=== PATIENT | male | born 1995 | race Caucasian/White ===

== ENCOUNTER 2020-07-17 11:43 | Emergency (ER) | payer BC ==
--- NOTE | 2020-07-17 12:08 | ED ---
General Adult HPI - General Chief complaint: Psychiatric Symptoms Stated complaint: mental health Time Seen by Provider: 07/17/20 12:07 Source: patient, family Mode of arrival: ambulatory Limitations: no limitations - History of Present Illness Initial comments: Patient presents the ED with his stepfather for evaluation. Patient states that he got over "a cold" about a week ago, and he states that he has been having trouble sleeping ever since then. Patient also states that he has been hearing voices, and he states that he has been hearing his stepfather say things that he hasn't been saying. Patient admits to occasional alcohol use, and he states that his last drink was about 2 days ago. Patient denies any illicit drug use. Patient denies medication abuse or overdose. Patient denies suicidal or homicidal ideations. Patient denies visual hallucinations. Patient denies having any pain, fever or chills, trauma or injury, headache, focal numbness/weakness/neuro deficit, seizure, visual changes, speech difficulty, neck pain or stiffness, cough or cold symptoms currently, chest pain, dyspnea, palpitations, dizziness, abdominal pain, nausea/vomiting/diarrhea, dysuria or urinary symptoms, or any other symptoms or complaints. - Related Data Home Medications Medication Instructions Recorded Confirmed Acetaminophen Oral Susp [Tylenol] 15 mg PO Q4H PRN 07/17/20 07/17/20 Dm/Acetaminophen/Doxylamine [Vicks 30 ml PO Q12H PRN 07/17/20 07/17/20 Nyquil Cold-Flu Liquid] Previous Rx's Medication Instructions Recorded LORazepam [Ativan] 1 mg PO HS PRN #1 tab 07/17/20 Allergies Allergy/AdvReac Type Severity Reaction Status Date / Time No Known Allergies Allergy Verified 07/17/20 12:40 Review of Systems ROS Statement: Those systems with pertinent positive or pertinent negative responses have been documented in the HPI. ROS Other: All systems not noted in ROS Statement are negative. Past Medical History Past Medical History: No Reported History History of Any Multi-Drug Resistant Organisms: None Reported Past Surgical History: No Surgical Hx Reported Past Psychological History: No Psychological Hx Reported Smoking Status: Current some day smoker Past Alcohol Use History: Daily Past Drug Use History: None Reported General Exam Limitations: no limitations General appearance: alert, in no apparent distress Head exam: Present: atraumatic, normocephalic Eye exam: Present: normal appearance, PERRL, EOMI ENT exam: Present: mucous membranes moist Neck exam: Present: other (Trachea is in midline). Absent: tenderness, meningismus Respiratory exam: Present: normal lung sounds bilaterally. Absent: respiratory distress, wheezes, rales, rhonchi, stridor Cardiovascular Exam: Present: regular rate, normal rhythm, normal heart sounds, other (Normal radial pulses bilaterally) GI/Abdominal exam: Present: soft. Absent: distended, tenderness, guarding Extremities exam: Absent: tenderness, pedal edema Neurological exam: Present: alert, oriented X3, CN II-XII intact. Absent: motor sensory deficit Psychiatric exam: Present: normal affect, normal mood Skin exam: Present: warm, dry, intact, normal color Course Vital Signs 07/17/20 11:54 Temperature 99.5 F Pulse Rate 107 H Respiratory 18 Rate Blood Pressure 149/102 O2 Sat by Pulse 97 Oximetry - Reevaluation(s) Reevaluation #1: 07/17/20 16:37 Patient has been evaluated by EPS nurse in the ED. She feels that the patient is safe for discharge home and outpatient psychiatric referral. Will treat the patient's insomnia with a dose of Ativan in the ED today and a prescription for another dose to go home with. Will discharge patient home with his father at this time. Patient and father were counseled about insomnia and hallucinations, and they were clearly explained return and follow-up instructions. They both feel comfortable with this plan. Medical Decision Making - Lab Data Lab Results 07/17/20 Range/Units 12:53 Urine Opiates Screen Not Detected (NotDetected) Ur Oxycodone Screen Not Detected (NotDetected) Urine Methadone Screen Not Detected (NotDetected) Ur Propoxyphene Screen Not Detected (NotDetected) Ur Barbiturates Screen Not Detected (NotDetected) U Tricyclic Antidepress Not Detected (NotDetected) Ur Phencyclidine Scrn Not Detected (NotDetected) Ur Amphetamines Screen Not Detected (NotDetected) U Methamphetamines Scrn Not Detected (NotDetected) U Benzodiazepines Scrn Not Detected (NotDetected) Urine Cocaine Screen Not Detected (NotDetected) U Marijuana (THC) Screen Not Detected (NotDetected) Disposition Clinical Impression: Insomnia, Auditory hallucinations Disposition: HOME SELF-CARE Condition: Stable Instructions (If sedation given, give patient instructions): Insomnia (ED), Psychiatric Hallucinations (ED) Additional Instructions: Return to the ER immediately should you develop thoughts of hurting yourself or others, any significant pain, a fever, shortness of breath, feeling dizzy or faint, or new or worsening symptoms. Follow up closely with your primary care provider. Prescriptions: LORazepam [Ativan] 1 mg PO HS PRN #1 tab PRN Reason: Insomnia Is patient prescribed a controlled substance at d/c from ED?: No Referrals: None,Stated [Primary Care Provider] - 1-2 days Kasandra Nieto MD [REFERRING] - 1-2 days Time of Disposition: 16:43
[2020-07-17 13:20] LABS: Amphetamine Screen,Urine Not Detected (NotDetected); Barbiturate Screen,Urine Not Detected (NotDetected); Benzodiazepines Screen,Urine Not Detected (NotDetected); Cocaine Screen,Urine Not Detected (NotDetected); Methadone Screen, Urine Not Detected (NotDetected); Opiate Screen,Urine Not Detected (NotDetected); Oxycodone Screen, Urine Not Detected (NotDetected); Phencyclidine Screen,Urine Not Detected (NotDetected); Tricyclic Antidepressant,Urine Not Detected (NotDetected); Urn Cannabinoid Scrn Not Detected (NotDetected)
[2020-07-17] MEDS ORDERED: LORazepam 1 MG TAB PO STA (16:37)
[2020-07-17 16:53] VITALS: BP 128/79; PULSE 95; RESP 16; TEMP 98
== END 2020-07-17 16:52 | disposition home or self-care (01) ==
LOC: EC 11:43
DX: G47.00 Insomnia, unspecified (principal); R44.0 Auditory hallucinations; F17.200 Nicotine dependence, unspecified, uncomplicated; Z79.899 Other long term (current) drug therapy
CPT/HCPCS: 80306; 82075; 99284

== ENCOUNTER 2020-07-17 22:08 | Observation (INO) | payer BC ==
[2020-07-17] MEDS ORDERED: SODIUM CHLORIDE 0.9% 1,000 ML IV STA (23:01)
[2020-07-17] MEDS ORDERED: SODIUM CHLORIDE 0.9% 1,000 ML IV ONE (23:01)
[2020-07-17] MEDS ORDERED: LORazepam 2 MG/ML INJ IV STA (23:01)
--- NOTE | 2020-07-17 23:02 | ED ---
Altered Mental Status HPI - General Chief Complaint: Psychiatric Symptoms Stated Complaint: Revisit Mental Health Time Seen by Provider: 07/17/20 22:43 Source: patient, family Mode of arrival: ambulatory Limitations: no limitations - Related Data Home Medications Medication Instructions Recorded Confirmed Acetaminophen Oral Susp [Tylenol] 15 mg PO Q4H PRN 07/17/20 07/17/20 Dm/Acetaminophen/Doxylamine [Vicks 30 ml PO Q12H PRN 07/17/20 07/17/20 Nyquil Cold-Flu Liquid] Previous Rx's Medication Instructions Recorded LORazepam [Ativan] 1 mg PO HS PRN #1 tab 07/17/20 Allergies Allergy/AdvReac Type Severity Reaction Status Date / Time No Known Allergies Allergy Verified 07/17/20 12:40 Review of Systems ROS Statement: Those systems with pertinent positive or pertinent negative responses have been documented in the HPI. ROS Other: All systems not noted in ROS Statement are negative. Past Medical History Past Medical History: No Reported History History of Any Multi-Drug Resistant Organisms: None Reported Past Surgical History: No Surgical Hx Reported Past Psychological History: No Psychological Hx Reported Smoking Status: Current some day smoker Past Alcohol Use History: Daily Past Drug Use History: None Reported General Exam Limitations: no limitations Course Vital Signs 07/17/20 22:37 Temperature 99.5 F Pulse Rate 122 H Respiratory 18 Rate Blood Pressure 128/86 O2 Sat by Pulse 99 Oximetry Medical Decision Making - Lab Data Result diagrams: 07/17/20 23:34 07/17/20 23:34 Lab Results 07/17/20 07/17/20 07/17/20 Range/Units 23:34 23:34 23:34 WBC 3.6 L (3.8-10.6) k/uL RBC 4.29 L (4.30-5.90) m/uL Hgb 15.1 (13.0-17.5) gm/dL Hct 42.3 (39.0-53.0) % MCV 98.6 (80.0-100.0) fL MCH 35.3 H (25.0-35.0) pg MCHC 35.8 (31.0-37.0) g/dL RDW 13.4 (11.5-15.5) % Plt Count 138 L (150-450) k/uL MPV 9.5 Neutrophils % 66 % Lymphocytes % 19 % Monocytes % 10 % Eosinophils % 3 % Basophils % 1 % Neutrophils # 2.4 (1.3-7.7) k/uL Lymphocytes # 0.7 L (1.0-4.8) k/uL Monocytes # 0.4 (0-1.0) k/uL Eosinophils # 0.1 (0-0.7) k/uL Basophils # 0.0 (0-0.2) k/uL Sodium 130 L (137-145) mmol/L Potassium 3.7 (3.5-5.1) mmol/L Chloride 93 L (98-107) mmol/L Carbon Dioxide 22 (22-30) mmol/L Anion Gap 15 mmol/L BUN 17 (9-20) mg/dL Creatinine 0.98 (0.66-1.25) mg/dL Est GFR (CKD-EPI)AfAm >90 (>60 ml/min/1.73 sqM) Est GFR (CKD-EPI)NonAf >90 (>60 ml/min/1.73 sqM) Glucose 112 H (74-99) mg/dL Calcium 9.6 (8.4-10.2) mg/dL Total Bilirubin 3.0 H (0.2-1.3) mg/dL AST 221 H (17-59) U/L ALT 239 H (4-49) U/L Alkaline Phosphatase 133 H (38-126) U/L Ammonia 24 (<30) umol/L Creatine Kinase 279 H (55-170) U/L Total Protein 8.0 (6.3-8.2) g/dL Albumin 4.8 (3.5-5.0) g/dL Salicylates <1.0 mg/dL Acetaminophen <10.0 ug/mL Serum Alcohol <10 mg/dL - EKG Data -: EKG Interpreted by Me (EKG shows sinus tachycardia 120 SD 1:30 QRS 86 QTc 440) Disposition Clinical Impression: Insomnia, Auditory hallucinations, Altered mental status, Transaminitis Disposition: ADMITTED IP TO THIS HOSP Condition: Stable Is patient prescribed a controlled substance at d/c from ED?: No Referrals: None,Stated [Primary Care Provider] - 1-2 days
[2020-07-17 23:52] LABS: Basophils % (A) 1 %; Eosinophils # (A) 0.1 k/uL (0-0.7); Eosinophils % (A) 3 %; HCT 42.3 % (39.0-53.0); HGB 15.1 gm/dL (13.0-17.5); Lymphocytes # (A) 0.7 k/uL (1.0-4.8); Lymphocytes % (A) 19 %; MCH 35.3 pg (25.0-35.0); MCHC 35.8 g/dL (31.0-37.0); MCV 98.6 fL (80.0-100.0); Mean Platelet Volume 9.5; Monocytes # (A) 0.4 k/uL (0-1.0); Monocytes % (A) 10 %; Neutrophils # (A) 2.4 k/uL (1.3-7.7); Neutrophils % (A) 66 %; Platelet Count 138 k/uL (150-450); RBC 4.29 m/uL (4.30-5.90); RDW 13.4 % (11.5-15.5); WBC 3.6 k/uL (3.8-10.6)
--- NOTE | 2020-07-17 23:55 | CT ---
EXAMINATION TYPE: CT brain wo con DATE OF EXAM: 07/17/2020 COMPARISON: None HISTORY: ams CT DLP: 1249.4 mGycm Automated exposure control for dose reduction was used. Exam performed without contrast. Ventricles have normal size. There is no mass effect nor midline shift. There is no sign of intracran ial hemorrhage. Calvarium is intact. There is no evidence of cerebral edema. Skull base is intact. IMPRESSION: Normal unenhanced head CT scan.
[2020-07-18 00:08] LABS: ALT 239 U/L (4-49); AST 221 U/L (17-59); Acetaminophen <10.0 ug/mL; African American GFR (CKD) >90 (>60 ml/min/1.73 sqM); Albumin 4.8 g/dL (3.5-5.0); Alcohol <10 mg/dL; Alkaline Phosphatase 133 U/L (38-126); Anion Gap 15 mmol/L; Blood Urea Nitrogen 17 mg/dL (9-20); Calcium 9.6 mg/dL (8.4-10.2); Carbon Dioxide 22 mmol/L (22-30); Chloride 93 mmol/L (98-107); Creatine Kinase 279 U/L (55-170); Glucose 112 mg/dL (74-99); Non-African American GFR(CKD) >90 (>60 ml/min/1.73 sqM); Potassium 3.7 mmol/L (3.5-5.1); Salicylate <1.0 mg/dL; Sodium 130 mmol/L (137-145)
[2020-07-18] MEDS ORDERED: SODIUM CHLORIDE 0.9% 1,000 ML IV STA (00:59)
[2020-07-18] MEDS ORDERED: DIAZEPAM 5 MG/ML 2 ML INJ IVP STA (01:08)
[2020-07-18] MEDS ORDERED: LORazepam 2 MG/ML INJ IV PRN (01:09)
[2020-07-18] MEDS ORDERED: NALOXONE 0.4 MG/ML 1 ML VIAL IV PRN (01:09)
--- NOTE | 2020-07-18 01:45 | CT ---
EXAM: CT Chest With Intravenous Contrast CLINICAL HISTORY: ITS.REASON CT Reason: ams TECHNIQUE: Axial computed tomography images of the chest with intravenous contrast. CTDI is 14.8 mGy and DLP is 1107 mGy-cm. This CT exam was performed using one or more of the following dose reduction techniques: automated exposure control, adjustment of the mA and/or kV according to patient size, and/or use of iterative reconstruction technique. COMPARISON: No relevant prior studies available. FINDINGS: Lungs: Unremarkable. No mass. No consolidation. Pleural space: Unremarkable. No pneumothorax. No significant effusion. Heart: Unremarkable. No cardiomegaly. No significant pericardial effusion. Bones/joints: Unremarkable. No acute fracture. No dislocation. Soft tissues: Unremarkable. Vasculature: Unremarkable. No thoracic aortic aneurysm. Lymph nodes: Unremarkable. No enlarged lymph nodes. IMPRESSION: No acute intrathoracic process. EXAM: CT Abdomen and Pelvis With Intravenous Contrast CLINICAL HISTORY: ITS.REASON CT Reason: ams TECHNIQUE: Axial computed tomography images of the abdomen and pelvis with intravenous contrast. CTDI is 16.9 mGy and DLP is 435.3 mGy-cm. This CT exam was performed using one or more of the following dose reduction techniques: automated exposure control, adjustment of the mA and/or kV according to patient size, and/or use of iterative reconstruction technique. COMPARISON: No relevant prior studies available. FINDINGS: Lung bases: Unremarkable. No mass. No consolidation. ABDOMEN: Liver: Diffusely hypoattenuating liver. No mass. Gallbladder and bile ducts: Unremarkable. No calcified stones. No ductal dilation. Pancreas: Unremarkable. No mass. No ductal dilation. Spleen: Unremarkable. No splenomegaly. Adrenals: Unremarkable. No mass. Kidneys and ureters: Unremarkable. No solid mass. No hydronephrosis. Stomach and bowel: Unremarkable. No obstruction. No mucosal thickening. PELVIS: Appendix: No findings to suggest acute appendicitis. Bladder: Unremarkable. No mass. Reproductive: Unremarkable as visualized. ABDOMEN and PELVIS: Intraperitoneal space: Unremarkable. No free air. No significant fluid collection. Bones/joints: No acute fracture. No dislocation. Soft tissues: Unremarkable. Vasculature: Unremarkable. No abdominal aortic aneurysm. Lymph nodes: Unremarkable. No enlarged lymph nodes. IMPRESSION: 1. No acute intra-abdominal process. 2. Hepatic steatosis.
[2020-07-18] MEDS: DEXTROSE 5%-0.45% NACL 1,000 ML IV SCH ×2 (01:48→14:56)
--- NOTE | 2020-07-18 02:14 | US ---
EXAM: US Abdomen Limited, Gallbladder CLINICAL HISTORY: ITS.REASON US Reason: pain TECHNIQUE: Real-time ultrasound of the right upper quadrant with image documentation. COMPARISON: No relevant prior studies available. FINDINGS: Gallbladder: Unremarkable. No gallstones. Common bile duct: Unremarkable as visualized. No stones. No dilation. Common bile duct measures 4 mm in diameter. Pancreas: Obscured by overlying bowel gas. Liver: Diffusely hyperechoic. Enlarged with right hepatic lobe measuring 22.5 cm in craniocaudal dimension. Right kidney: Measures 11.0 cm in length. No hydronephrosis or shadowing stones. Normal cortical echogenicity. No cortical thinning. IMPRESSION: No cholelithiasis or sonographic evidence of acute cholecystitis. No intrahepatic or extra hepatic biliary ductal dilation.
[2020-07-18] MEDS ORDERED: HALOPERIDOL LACTATE 5 MG/ML 1 ML VIAL IM STA (04:41)
[2020-07-18] MEDS ORDERED: LORazepam 2 MG/ML INJ IV STA (04:41)
[2020-07-18] MEDS ORDERED: diphenhydrAMINE 50 MG/ML 1 ML VIAL IVP STA (04:41)
[2020-07-18] MEDS ORDERED: HALOPERIDOL LACTATE 5 MG/ML 1 ML VIAL IM PRN (06:37)
--- NOTE | 2020-07-18 09:29 | P.CNNES ---
History of Present Illness Consult date: 07/18/20 Requesting physician: Christopher Irving Reason for Consult: altered mental status History of Present Illness: This is a 25-year-old gentleman that presented to the emergency department on 07/17/2020 for insomnia and auditory hallucination for last three days according to the patient. History is limited since unable to get all of history from patient. Some of the history is obtained from Hollie (nurse over at [facility] who knows the patient and his family). She stated the patient has history of LSD overdose 4-5 years ago and walker naked in the street, heavy alcohol use but without any medical problems that she know. She does not know what brought the patient to the facility. Upon seeing the patient he said he was brought in because of COVID-19+ve and elevated liver function test. Upon asking him if he has been coughing recently he said yes. He did state that he heavily drinks alcohol and last drink was 4-5 days ago. He denies of any focal weakness, numbness, headache, visual disturbance. Beside that he could not tell me much of the history. Workup in the hospital consisted of: Initial vital signs is blood pressure of 128/86, heart rate of 122, temperature of 99.5 Fahrenheit oral, respiratory of 18, pulse ox of 99% room air CT of the head is reported as normal unenhanced head CT scan. EKG is reported as sinus tachycardia. Otherwise normal EKG. Initial white blood cells 3.6. That MCV is 98.6 which is normal. The sodium level is 1:30 which is mildly low. The initial serum glucose is 112. AST of 221 and the ALT of 239. Alk phosphatase is 133 which are all abnormal. Ammonia level is 24 which is normal CK level was 279 was mildly elevated. The toxicology screen: Acetaminophen is less than 10 which is normal, alcohol was less than 10, sessile it's is less than 1.0. Aquino virus PCR is detected. Ultrasound the abdomen is reported as no cold urolithiasis or sonographic evidence of acute cholecystitis. No intrahepatic or extrahepatic biliary ductal dilation. CT abdomen and pelvis is reported as no acute intra-abdominal process. Hepatic steatosis. In the ED the patient was given Haldoll 5 mg once because of the patient's acute psychosis and agitation as well as the patient was given a total 3 mg Ativan. Was given 1 mg every 6 hours for anxiety and when necessary. Review of Systems Review of system is limited and pertinent positive and negative as per HPI. Past Medical History Past Medical History: No Reported History History of Any Multi-Drug Resistant Organisms: None Reported Past Surgical History: No Surgical Hx Reported Past Anesthesia/Blood Transfusion Reactions: No Reported Reaction Past Psychological History: No Psychological Hx Reported Smoking Status: Current some day smoker Past Alcohol Use History: Daily Past Drug Use History: None Reported - Past Family History Mother Additional Family Medical History / Comment(s): anxiety and depression Medications and Allergies Home Medications Medication Instructions Recorded Confirmed Type Acetaminophen Oral Susp [Tylenol] 15 mg PO Q4H PRN 07/17/20 07/18/20 History Dm/Acetaminophen/Doxylamine [Vicks 30 ml PO Q12H PRN 07/17/20 07/18/20 History Nyquil Cold-Flu Liquid] LORazepam [Ativan] 1 mg PO HS PRN #1 tab 07/17/20 07/18/20 Rx Allergies Allergy/AdvReac Type Severity Reaction Status Date / Time No Known Allergies Allergy Verified 07/17/20 12:40 Physical Examination - Vital Signs Vital Signs: Vital Signs Temp Pulse Pulse Resp BP BP Pulse Ox 07/18/20 06:02 99.4 F 113 H 21 130/89 97 07/18/20 03:47 99.2 F 120 H 16 141/88 95 07/18/20 02:52 98.9 F 110 H 16 144/90 99 07/17/20 22:37 99.5 F 122 H 18 128/86 99 Intake and Output 07/17/20 07/18/20 07/18/20 22:59 06:59 14:59 Other: Weight 99.79 kg 99.79 kg GENERAL: The patient is lying in bed and is not in acute distress. CHEST: The heart rate is regular rate rhythm. No murmurs to auscultation. No carotid bruit bilaterally. LUNG: Clear to auscultation bilaterally no wheezing noted throughout. Not labored breathing. ABDOMEN/GI: Bowel sounds present in all 4 quadrants. No tenderness to palpation throughout. NEUROLOGICAL: Higher mental function: The patient is awake, alert, oriented to self and time but upon asking his name he said let looked at his wrist band and then stated his name and after repeating it again he said it without looking at wrist band. He stated he was in the hospital but could not tell which. Upon asking him questions he seemed puzzled to questions. He asked me what's today's date later? Able to name objects correctly (pen, watch, cup, fork). Patient is simple following commands. No aphasia and no neglect. Able to repeat sentences without difficulty. Cranial nerves: The pupils are round, equal and reactive to light. Right eye protosis (upon asking him if he had this in past he said it was because he was in [place]). Visual goldstein are full to confrontation throughout. Extraocular movement is intact no nystagmus is noted. Facial sensation is normal to touch throughout. The facial strength is normal throughout. Hearing is normal bilaterally to hand rub. Tongue is midline and moved [id number] without any difficulty. No dysarthria is noted. Shoulder shrug is normal bilaterally. Motor: Gait is normal. The strength is 5 over 5 throughout. Normal tone and bulk. Cerebellum: Normal finger to nose bilaterally. Sensation: Sensation is normal to touch throughout. Reflexes (right/left): 2+ throughout. Plantars are downgoing bilaterally. Results - Laboratory Findings CBC and BMP: 07/17/20 23:34 07/17/20 23:34 Abnormal Lab Findings: Abnormal Labs 07/17/20 07/17/20 07/18/20 23:34 23:34 01:51 WBC 3.6 L RBC 4.29 L MCH 35.3 H Plt Count 138 L Lymphocytes # 0.7 L Sodium 130 L Chloride 93 L Glucose 112 H Total Bilirubin 3.0 H AST 221 H ALT 239 H Alkaline Phosphatase 133 H Creatine Kinase 279 H Coronavirus (PCR) Detected A Assessment and Plan Assessment: This is a 25-year-old gentleman that presented to the emergency department on 07/17/2020 for insomnia and auditory hallucination for the last 3 days per patient. He was found to have elevated AST and ALT as well as his coronavirus patient are was positive. Altered mental status seems like metabolic encephalopathy with elevated AST and ALT as well as component of encephalopathy from the underlying covid 19 (likely COVID-19 pneumonia since also coughing). Possible also component of alcohol withdrawal. Elevated AST and ALT with hepatic steatosis on CT Acute psychosis with insomnia and auditory hallucination COVID 19 Proptosis of right eye. Chronic Heavy Alcohol and per patient last drink was 4-5 days ago History of Drug absuse (LSD overdose about 4-5 years ago per one of the nurses that know the patient and his family) Plan: I ordered TSH level, Vitamin B12 and folate level. I started the patient on thiamine 100 mg daily. I ordered MRI Brain. I ordered CXR. An emergent/urgent EEG is not warranted at this time since does not seem like seizure. Drug screen is pending as well as the hepatitis panel ordered by the ED. Patient is on Ativan 1 mg every 6 hours when necessary. Psychiatry is consulted. [employer] are consulted for transaminitis. Recommend CIWA protocol and to defer management to primary team. We'll defer the rest of the medical measure to the primary team. The plan was discussed with the patient's nurse and primary team. Thank you for the consultation. Omari Masterson MD Neuro-hospitalist Time with Patient: Greater than 30
[2020-07-18 10:06] LABS: Appearance,Urine Clear (Clear); Bilirubin,Urine 1+ (Negative); Blood,Urine Trace (Negative); Color,Urine Yellow; Glucose,Urine (UA) Negative (Negative); Ketones,Urine 1+ (Negative); Leukocyte Esterase,Urine Negative (Negative); Nitrite,Urine Negative (Negative); PH, Urine 6.5 (5.0-8.0); Protein,Urine 1+ (Negative); RBC,Urine 1 /hpf (0-5); Specific Gravity,Urine 1.033 (1.001-1.035); Squamous Epithelial Cell,Urine <1 /hpf (0-4); Urobilinogen,Urine >12.0 mg/dL (<2.0); WBC,Urine <1 /hpf (0-5)
[2020-07-18 10:30] LABS: Amphetamine Screen,Urine Not Detected (NotDetected); Barbiturate Screen,Urine Not Detected (NotDetected); Benzodiazepines Screen,Urine Detected (NotDetected); Cocaine Screen,Urine Not Detected (NotDetected); Methadone Screen, Urine Not Detected (NotDetected); Opiate Screen,Urine Not Detected (NotDetected); Oxycodone Screen, Urine Not Detected (NotDetected); Phencyclidine Screen,Urine Not Detected (NotDetected); Tricyclic Antidepressant,Urine Not Detected (NotDetected); Urn Cannabinoid Scrn Not Detected (NotDetected)
--- NOTE | 2020-07-18 11:21 | XR ---
EXAMINATION TYPE: XR chest 1V portable DATE OF EXAM: 07/18/2020 COMPARISON: None INDICATION: Cough, cold. TECHNIQUE: Single frontal view of the chest is obtained. FINDINGS: The heart size is normal. The pulmonary vasculature is normal. The lungs are clear. IMPRESSION: 1. No acute pulmonary process.
[2020-07-18] MEDS ORDERED: ACETAMINOPHEN TAB 325 MG TAB PO PRN (11:57)
--- NOTE | 2020-07-18 13:56 | P.CN ---
Psychiatric Consult - . Consult date: 07/18/20 Consult:: The patient was also unit for the MRI when I attempted to connect interview. 07/18/20 13:56
--- NOTE | 2020-07-18 13:59 | MR ---
EXAMINATION TYPE: MR brain wo con DATE OF EXAM: 07/18/2020 COMPARISON: CT brain 07/17/2020 HISTORY: Altered mental status CONTRAST: Performed utilizing 0 mL intravenous Gadavist gadolinium contrast. TECHNIQUE: Multiplanar, multiecho imaging on a 3.0 Catherine magnet is performed through the brain. Stud y is performed within 24 hours of arrival to the hospital. The craniovertebral junction is normal. The pituitary is normal. Diffusion-weighted imaging is performed. No abnormal hyperintensity is present to suggest an acute i ntracranial infarct or acute ischemic change. There is a punctate hyperintensity within the deep white matter right frontal lobe. This is not out o f proportion of the patient's age. Ventricles and sulci are appropriate for the patient age. IMPRESSIONS: 1. Solitary white matter change not out of proportion to the patient's age. Finding is nonspecific bu t can be related to etiologies such as microvascular ischemic change and migraine headaches.
[2020-07-18] MEDS: THIAMINE 100 MG TAB PO SCH (14:56)
--- NOTE | 2020-07-18 15:36 | CONS ---
CONSULTATION DATE OF SERVICE: 07/18/2020 REQUESTING PHYSICIAN: Dr. Valente. REASON FOR CONSULTATION: Elevated LFTs and jaundice. HISTORY OF PRESENT ILLNESS: The patient is a 25-year-old white male admitted to the hospital with insomnia and hallucinations for the last 5 days duration. He has history of heavy alcohol abuse and has been drinking about a fifth a day for the last few years. The patient is somewhat a poor historian and is unable to give a history properly. He denies any abdominal pain. Reports no nausea or vomiting. He came to the emergency room yesterday and he was noted to have elevated LFTs with bilirubin of 3 and ALT and AST in the range of 221 and 239 respectively. He was tested for coronavirus PCR and was positive. The patient denies any history of intravenous drug use. He has prior history of drug abuse in the past and apparently 4 years ago had overdosed with LSD. He however denies any intravenous use currently. No cocaine use. He reports no fever, chills, or night sweats. He has been taking some NyQuil 1 or 2 tablets for the last 5 days. No Tylenol overdose suspected. PAST MEDICAL HISTORY: Unremarkable other than LSD overdose a few years ago and history of alcohol abuse. MEDICATIONS: Medications at home include Tylenol, DayQuil/NyQuil. ALLERGIES: No known drug allergies. SOCIAL HISTORY: Chronic smoker. Heavy alcohol abuse as mentioned above. FAMILY HISTORY: Unremarkable. REVIEW OF SYSTEMS: CARDIOPULMONARY: He denies any chest pain or shortness of breath. : No dysuria or hematuria. MUSCULOSKELETAL: Unremarkable. SKIN: Unremarkable. ENDOCRINE: Unremarkable. PSYCHIATRIC: Some hallucinations noted. NEUROLOGY: Insomnia. ENT: Vision unremarkable. CONSTITUTIONAL: No recent weight loss. No fever, chills, night sweats. PHYSICAL EXAMINATION: He appears comfortable. VITAL SIGNS: Stable. Blood pressure is 130/89, pulse rate 113, temperature 98.4. HEENT: Examination unremarkable. Conjunctivae are pink, sclerae anicteric. Oral cavity no lesions. NECK: No JVD or lymph node enlargement. CHEST: Clear to auscultation. HEART: Regular rate and rhythm. ABDOMEN: Soft, bowel sounds are positive, no organomegaly. EXTREMITIES: No pedal edema. SKIN: No rashes. NEUROLOGIC: Alert and oriented x3. No focal deficits. LABS: WBC 3.6, hemoglobin 15.1, platelets 138. Sodium 130, potassium 3.7, chloride 93, BUN 17, creatinine 0.98, T bilirubin 3, AST 221, ALT 239, alkaline phosphatase is 133. Coronavirus PCR is . Heterophile antibodies negative. Serum alcohol less than 10. Serum acetaminophen less than 10. Salicylates less than 1. He did have a CT of the abdomen and pelvis done in the emergency room that was unremarkable. Hepatic steatosis noted. Ultrasound of the gallbladder did not show any evidence of gallstones or biliary ductal dilation. IMPRESSION: 1. This is a patient who presented to the hospital with vague neurological symptoms with insomnia, hallucinations and also noted to have elevated LFTs and jaundice. He was tested positive for COVID infection but does not have any pulmonary symptoms. He denies any recent intravenous drug use. However, he has been drinking alcohol on a heavy basis. The biochemical picture is consistent with acute hepatitis, probably viral in etiology and 15-20 percent of patients with COVID infection can present with acute hepatitis like picture, but of course other etiologies need to be excluded. 2. Insomnia and hallucinations. Neurology has been consulted. RECOMMENDATION: 1. Obtain hepatitis serologies for A, B and C. 2. Obtain CMV and EBV viral hepatitis. 3. Monitor LFTs closely. 4. Avoid hepatotoxic medications. 5. Start him on a regular diet. 6. We will follow with you closely. Thank you for this consultation. MMVEEL / GERMAN: [phone] /
--- NOTE | 2020-07-18 16:41 | P.HPIM ---
History of Present Illness 25-year-old the present male with known history of all call abuse and has been drinking alcohol heavily for about the OB can stop drinking about 6 days ago and patient started having hallucinations and insomnia for 3 days patient apparently was confused earlier today but when I valid the patient patient is alert oriented 3. Patient did receive Haldol for agitation and hallucinations after which patient had a good sleep and patient confusion appears to have resolved completely. Patient was evaluated by neurology. Patient is also found to have a cold with 19 infection with mildly elevated liver enzymes. Patient had histor y of other illicit drug abuse in the past. Patient denied any hallucinations at this time. Patient had extensive workup and the CT of the head which is within normal limits EKG was sinus tachycardia but of presently not tachycardic sodium is bit low, toxicology is positive for benzodiazepines but patient received Ativan last night. Patient has multiple other imaging studies including OF THE ABDOMEN CT ABDOMEN PELVIS ALL ARE ESSENTIALLY WITHIN NORMAL LIMITS EXCEPT FOR fatty liver. Patient had an MRI as well which did not show any significant abnormality except for his solitary white matter change which can be due to microvascular ischemic changes her migraine headaches although considering his age is probably not ischemic Review of Systems REVIEW OF SYSTEMS: CONSTITUTIONAL: No fever, no malaise, no fatigue. HEENT: No recent visual problems or hearing problems. Denied any sore throat. CARDIOVASCULAR: No chest pain, orthopnea, PND, no palpitations, no syncope. PULMONARY: No shortness of breath, no cough, no hemoptysis. GASTROINTESTINAL: No diarrhea, no nausea, no vomiting, no abdominal pain. NEUROLOGICAL: No headaches, no weakness, no numbness. HEMATOLOGICAL: Denies any bleeding or petechiae. GENITOURINARY: Denies any burning micturition, frequency, or urgency. MUSCULOSKELETAL/RHEUMATOLOGICAL: Denies any joint pain, swelling, or any muscle pain. ENDOCRINE: Denies any polyuria or polydipsia. The rest of the 14-point review of systems is negative. Past Medical History Past Medical History: No Reported History History of Any Multi-Drug Resistant Organisms: None Reported Past Surgical History: No Surgical Hx Reported Past Anesthesia/Blood Transfusion Reactions: No Reported Reaction Past Psychological History: No Psychological Hx Reported Smoking Status: Current some day smoker Past Alcohol Use History: Daily Past Drug Use History: None Reported - Past Family History Mother Additional Family Medical History / Comment(s): anxiety and depression Medications and Allergies Home Medications Medication Instructions Recorded Confirmed Type Acetaminophen Oral Susp [Tylenol] 15 mg PO Q4H PRN 07/17/20 07/18/20 History Dm/Acetaminophen/Doxylamine [Vicks 30 ml PO Q12H PRN 07/17/20 07/18/20 History Nyquil Cold-Flu Liquid] LORazepam [Ativan] 1 mg PO HS PRN #1 tab 07/17/20 07/18/20 Rx Allergies Allergy/AdvReac Type Severity Reaction Status Date / Time No Known Allergies Allergy Verified 07/17/20 12:40 Physical Exam Vitals: Vital Signs Temp Pulse Pulse Resp BP BP Pulse Ox 07/18/20 13:51 98.2 F 96 20 132/88 97 07/18/20 10:18 97.8 F 101 H 18 126/85 97 07/18/20 06:02 99.4 F 113 H 21 130/89 97 07/18/20 03:47 99.2 F 120 H 16 141/88 95 07/18/20 02:52 98.9 F 110 H 16 144/90 99 07/17/20 22:37 99.5 F 122 H 18 128/86 99 Intake and Output 07/18/20 07/18/20 07/18/20 06:59 14:59 22:59 Other: # Voids 1 Weight 99.79 kg PHYSICAL EXAMINATION: GENERAL: The patient is alert and oriented x3, not in any acute distress. Well developed, well nourished. HEENT: Pupils are round and equally reacting to light. EOMI. No scleral icterus. No conjunctival pallor. Normocephalic, atraumatic. No pharyngeal erythema. No thyromegaly. CARDIOVASCULAR: S1 and S2 present. No murmurs, rubs, or gallops. PULMONARY: Chest is clear to auscultation, no wheezing or crackles. ABDOMEN: Soft, nontender, nondistended, normoactive bowel sounds. No palpable organomegaly. MUSCULOSKELETAL: No joint swelling or deformity. EXTREMITIES: No cyanosis, clubbing, or pedal edema. NEUROLOGICAL: Gross neurological examination did not reveal any focal deficits. SKIN: No rashes. Results CBC & Chem 7: 07/17/20 23:34 07/17/20 23:34 Labs: Abnormal Lab Results - Last 24 Hours (Table) 0307/17/20 07/18/20 Range/Units 23:34 23:34 01:51 WBC 3.6 L (3.8-10.6) k/uL RBC 4.29 L (4.30-5.90) m/uL MCH 35.3 H (25.0-35.0) pg Plt Count 138 L (150-450) k/uL Lymphocytes # 0.7 L (1.0-4.8) k/uL Sodium 130 L (137-145) mmol/L Chloride 93 L (98-107) mmol/L Glucose 112 H (74-99) mg/dL Total Bilirubin 3.0 H (0.2-1.3) mg/dL AST 221 H (17-59) U/L ALT 239 H (4-49) U/L Alkaline Phosphatase 133 H (38-126) U/L Creatine Kinase 279 H (55-170) U/L Urine Protein 1+ H (Negative) Urine Ketones 1+ H (Negative) Urine Blood Trace H (Negative) Urine Bilirubin 1+ H (Negative) U Benzodiazepines Scrn Detected H (NotDetected) Coronavirus (PCR) (Not Detectd) 07/18/20 Range/Units 01:51 WBC (3.8-10.6) k/uL RBC (4.30-5.90) m/uL MCH (25.0-35.0) pg Plt Count (150-450) k/uL Lymphocytes # (1.0-4.8) k/uL Sodium (137-145) mmol/L Chloride (98-107) mmol/L Glucose (74-99) mg/dL Total Bilirubin (0.2-1.3) mg/dL AST (17-59) U/L ALT (4-49) U/L Alkaline Phosphatase (38-126) U/L Creatine Kinase (55-170) U/L Urine Protein (Negative) Urine Ketones (Negative) Urine Blood (Negative) Urine Bilirubin (Negative) U Benzodiazepines Scrn (NotDetected) Coronavirus (PCR) Detected A (Not Detectd) Assessment and Plan Plan: Hallucinations, altered mental status: Secondary to lack of sleep or insomnia no further depression at this time patient will be monitored overnight possibly of discharge tomorrow. -Hyponatremia possibly hypovolemic hyponatremia patient will be started and continued on IV fluids -Tachycardia secondary to hypovolemia -Alcoholic hepatitis: Leading to transaminitis. Hepatitis panel is pending -Alcohol abuse: Patient last drink was 6 days ago do not expect any withdrawals patient will not require any alcohol withdrawal precautions at this time -Due to prophylaxis: Early ambulation
[2020-07-18] MEDS ORDERED: SODIUM CHLORIDE 0.9% 1,000 ML IV SCH (16:45)
[2020-07-18 20:39] LABS: Hepatitis A Antibody IgM Non-Reactive (Non-Reactive); Hepatitis B Core IgM Non-Reactive (Non-Reactive); Hepatitis B Surface Antigen Non-Reactive (Non-Reactive); Hepatitis C IgG Antibody Non-Reactive (Non-Reactive)
[2020-07-18] MEDS: ASCORBIC ACID 500 MG TAB PO SCH (20:40)
[2020-07-19 06:47] VITALS: RESP 17
[2020-07-19] MEDS: THIAMINE 100 MG TAB PO SCH (07:38)
[2020-07-19] MEDS: ASCORBIC ACID 500 MG TAB PO SCH (07:38)
[2020-07-19] MEDS ORDERED: ZINC SULFATE 220 MG CAP PO SCH (09:00)
[2020-07-19 09:12] LABS: Basophils # (A) 0.01 X 10*3/uL (0.00-0.10); Basophils % (A) 0.4 %; Eosinophils # (A) 0.11 X 10*3/uL (0.04-0.35); HCT 41.6 % (39.6-50.0); MCH 33.5 pg (27.0-32.0); MCHC 33.7 g/dL (32.0-37.0); MCV 99.5 fL (80.0-97.0); Mean Platelet Volume 11.9 fL (9.5-12.2); Monocytes # (A) 0.56 X 10*3/uL (0.20-1.00); Monocytes % (A) 20.1 %; Neutrophils # (A) 1.08 X 10*3/uL (1.80-7.70); Neutrophils % (A) 38.8 %; Platelet Count 136 X 10*3/uL (140-440); RBC 4.18 X 10*6/uL (4.40-5.60); RDW 13.1 % (11.5-14.5); WBC 2.78 X 10*3/uL (4.50-10.00)
[2020-07-19 09:54] LABS: African American GFR (CKD) 138.1 (60.0-200.0); Albumin 4.3 g/dL (3.80-4.90); Albumin/Globulin Ratio 2.05 (1.60-3.17); Anion Gap 8.4 mmol/L (4.00-12.00); BUN/Creat Ratio 17.78 Ratio (12.00-20.00); Carbon Dioxide 25.6 mmol/L (21.6-31.8); Globulin 2.1 g/dL (1.6-3.3); Non-African American GFR(CKD) 119.1 (60.0-200.0); Potassium 3.8 mmol/L (3.5-5.5); Total Bilirubin 1.6 mg/dL (0.3-1.2); Total Protein 6.4 g/dL (6.2-8.2)
[2020-07-19 10:09] VITALS: BP 139/88; PULSE 98; TEMP 98
--- NOTE | 2020-07-19 10:20 | P.PN ---
Subjective Progress Note Date: 07/19/20 Patient was seen at bedside and he stated that he's doing much better today compared to yesterday. He did acknowledge that the he has history of signfiicant alcohol use and he is not been drinking for the last close to weak to 5 days. He said that there is date that he is very excessive more than others. He said sometimes he drinks fifth of a pint. Again he stated that he came because he hasn't been sleeping for last 3 days and he's been having some auditory hallucinations in which the he was hearing and his appearance voices but he couldn't make out what they're saying so he went downstairs and when he went downstairs there is sleeping. Other times he would hear people walking and again when he checked everybody was asleep and nobody was walk-in. He denies of any current illicit drug use. He does smoke tobacco and he stated that he smokes about a third to half a pack a day and but was smo ke in the more than that in the past and he's been spoken for years. He did acknowledge that about 5 years ago he had an episode where he had LSD then walked naked in the street. Currently he denies of any focal weakness numbness, visual disturbance, headache. Objective - Vital Signs Vital signs: Vital Signs Temp 99.3 F 07/19/20 05:42 Pulse 122 H 07/19/20 05:42 Resp 17 07/19/20 05:42 BP 136/89 07/19/20 05:42 Pulse Ox 97 07/19/20 08:54 Intake & Output 07/18/20 07/19/20 07/19/20 18:59 06:59 18:59 Intake Total 400 Balance 400 Intake: Oral 400 Other: # Voids 1 2 - Exam GENERAL: The patient is lying in bed and is not in acute distress. NEUROLOGICAL: Higher mental function: The patient is awake, alert, oriented to self, place and time. Patient is following simple and complex commands. He is more awake and responsive today compared to yesterday. No aphasia and no neglect. Cranial nerves: The pupils are round, equal and reactive to light and accommodation. Visual goldstein are full to confrontation throughout. Extraocular movement is intact no nystagmus is noted. Facial sensation is normal to touch throughout. The facial strength is normal throughout. Hearing is normal bilaterally to hand rub. Tongue is midline and moved [id number] without any difficulty. No dysarthria is noted. Shoulder shrug is normal bilaterally. Motor: Gait is normal. The strength is 5 over 5 throughout. Normal tone and bulk. Cerebellum: Normal finger to nose heel to chin bilaterally. Sensation: Sensation is normal to touch throughout. Reflexes (right/left): 2+ Plantars are downgoing bilaterally. - Labs CBC & Chem 7: 07/19/20 06:39 07/19/20 06:39 Labs: Abnormal Lab Results - Last 24 Hours (Table) 07/18/20 07/19/20 07/19/20 Range/Units 01:51 06:39 06:39 WBC 2.78 L (4.50-10.00) X 10*3/uL RBC 4.18 L (4.40-5.60) X 10*6/uL MCV 99.5 H (80.0-97.0) fL MCH 33.5 H (27.0-32.0) pg Plt Count 136 L (140-440) X 10*3/uL Neutrophils # 1.08 L (1.80-7.70) X 10*3/uL Total Bilirubin 1.6 H (0.3-1.2) mg/dL AST 136 H (14-35) U/L ALT 159 H (10-49) U/L U Benzodiazepines Scrn Detected H (NotDetected) Assessment and Plan Assessment: This is a 25-year-old gentleman that presented to the emergency department on 07/17/2020 for insomnia and auditory hallucination for the last 3 days per patient. He was found to have elevated AST and ALT as well as his coronavirus patient are was positive. Altered mental status seems like metabolic encephalopathy with elevated AST and ALT as well as component of encephalopathy from the underlying covid 19 (likely COVID-19). Possible also component of alcohol withdrawal.---mentation improved Elevated AST and ALT with hepatic steatosis on CT--trending hanna Alcohol hepatitis Acute psychosis with insomnia and auditory hallucination COVID 19 Chronic Heavy Alcohol and per patient last drink was 4-5 days ago History of Drug absuse (LSD overdose about 5 years ago per one of the nurses that know the patient and his family. Patiend did acknowledge of the event) Tobacco use Plan: Vitamin B12 477 which is normal. Pending her blood cell folate. TSH is 2.5 which is normal. AST is 136 and ALT is 159 trending down. Continue thiamine 100 mg daily. MRI Brain: Was reported as solitary white matter change the not on a proportion of the patient's age. Finding is nonspecific but can be related to etiology such as microvascular ischemic change and migraine headaches. I personally reviewed the MRI the brain and I was not impressed and does not seem concerning. CXR: Is reported as no acute pulmonary process. An emergent/urgent EEG is not warranted at this time since does not seem like seizure. Patient is on Ativan 1 mg every 6 hours when necessary. Psychiatry is consulted. [facility] Department End Finder are consulted for transaminitis. We'll defer the rest of the medical measure to the primary team. Patient was counseled on tobacco cessation and alcohol cessation as well. There is no further workup from a neurological perspective. Patient is clear. Neurology will sign off. Please reconsult if needed The plan was discussed with the patient's nurse. Omari Masterson MD Neuro-hospitalist Time with Patient: Less than 30
--- NOTE | 2020-07-19 15:57 | P.PN ---
Subjective 25-year-old the present male with known history of all call abuse and has been drinking alcohol heavily for about the OB can stop drinking about 6 days ago and patient started having hallucinations and insomnia for 3 days patient apparently was confused earlier today but when I valid the patient patient is alert oriented 3. Patient did receive Haldol for agitation and hallucinations after which patient had a good sleep and patient confusion appears to have resolved completely. Patient was evaluated by neurology. Patient is also found to have aCovid 19 infection with mildly elevated liver enzymes. Patient had history of other illicit drug abuse in the past. Patient denied any hallucinations at this time. Patient had extensive workup and the CT of the head which is within normal limits EKG was sinus tachycardia but of presently not tachycardic sodium is bit low, toxicology is positive for benzodiazepines but patient received Ativ an last night. Patient has multiple other imaging studies including OF THE ABDOMEN CT ABDOMEN PELVIS ALL ARE ESSENTIALLY WITHIN NORMAL LIMITS EXCEPT FOR fatty liver. Patient had an MRI as well which did not show any significant abnormality except for his solitary white matter change which can be due to microvascular ischemic changes her migraine headaches although considering his age is probably not ischemic. 07/19/2020 Patient is clinically doing well will be discharged today is alert oriented 3. Liver enzymes trended down. Hyponatremia resolved. PHYSICAL EXAMINATION: GENERAL: The patient is alert and oriented x3, not in any acute distress. Well developed, well nourished. HEENT: Pupils are round and equally reacting to light. EOMI. No scleral icterus. No conjunctival pallor. Normocephalic, atraumatic. No pharyngeal erythema. No thyromegaly. CARDIOVASCULAR: S1 and S2 present. No murmurs, rubs, or gallops. PULMONARY: Chest is clear to auscultation, no wheezing or crackles. ABDOMEN: Soft, nontender, nondistended, normoactive bowel sounds. No palpable organomegaly. MUSCULOSKELETAL: No joint swelling or deformity. EXTREMITIES: No cyanosis, clubbing, or pedal edema. NEUROLOGICAL: Gross neurological examination did not reveal any focal deficits. SKIN: No rashes. Assessment and Plan Plan: Hallucinations, altered mental status: Secondary to lack of sleep or insomnia no further intervention , patient underwent extensive evaluation as mentioned above. -Hyponatremia possibly hypovolemic hyponatremia improved with IV fluids -Covid 19 infection -Tachycardia secondary to hypovolemia, resolved -Alcoholic hepatitis: Leading to transaminitis. Hepatitis panel is negative, improving liver enzymes -Alcohol abuse: Patient last drink was about 7 days ago Objective - Vital Signs Vital signs: Vital Signs Temp 98.0 F 07/19/20 10:08 Pulse 98 07/19/20 10:08 Resp 17 07/19/20 05:42 BP 139/88 07/19/20 10:08 Pulse Ox 97 07/19/20 10:08 Intake & Output 07/18/20 07/19/20 07/19/20 18:59 06:59 18:59 Intake Total 400 Balance 400 Intake: Oral 400 Other: # Voids 1 2 - Labs CBC & Chem 7: 07/19/20 06:39 07/19/20 06:39 Labs: Abnormal Lab Results - Last 24 Hours (Table) 07/19/20 07/19/20 Range/Units 06:39 06:39 WBC 2.78 L (4.50-10.00) X 10*3/uL RBC 4.18 L (4.40-5.60) X 10*6/uL MCV 99.5 H (80.0-97.0) fL MCH 33.5 H (27.0-32.0) pg Plt Count 136 L (140-440) X 10*3/uL Neutrophils # 1.08 L (1.80-7.70) X 10*3/uL Total Bilirubin 1.6 H (0.3-1.2) mg/dL AST 136 H (14-35) U/L ALT 159 H (10-49) U/L
== END 2020-07-19 11:58 | disposition home or self-care (01) ==
LOC: EC 22:08 → 4SSUR 07-18 01:09
PROVIDERS: ADMIT Hospitalist; ATTEND Hospitalist
DX: R41.82 Altered mental status, unspecified (principal); G47.00 Insomnia, unspecified; U07.1 COVID-19; G93.40 Encephalopathy, unspecified; K70.10 Alcoholic hepatitis without ascites; F23 Brief psychotic disorder; F10.10 Alcohol abuse, uncomplicated; R00.0 Tachycardia, unspecified; E86.1 Hypovolemia; F17.200 Nicotine dependence, unspecified, uncomplicated; E87.1 Hypo-osmolality and hyponatremia; K76.0 Fatty (change of) liver, not elsewhere classified; E11.9 Type 2 diabetes mellitus without complications; G43.909 Migraine, unspecified, not intractable, without status migrainosus; F41.9 Anxiety disorder, unspecified; R05 Cough; H05.20 Unspecified exophthalmos; R74.01 Elevation of levels of liver transaminase levels
CPT/HCPCS: 96376; 96361 ×2; 96372; 96375 ×2; 82075; 96374; 99285; 36415; 94760; 93005; 82747; 80053 ×2; 80074; 84443; 82607; 82140; 82550; 85025 ×2; 86308; 81001; 80306; 80143; 80320; 87635; 80179; 71045; 76705; 70450; 71260; 74177; 70551; G0378 ×2; J2060 ×2; J1200; J1630; J3360; Q9967

== ENCOUNTER 2022-01-03 23:26 | Emergency (ER) | payer BC ==
[2022-01-04] MEDS ORDERED: ACETAMINOPHEN TAB 325 MG TAB PO STA (02:24)
[2022-01-04] MEDS ORDERED: IBUPROFEN 600 MG TAB PO STA (02:24)
[2022-01-04 02:57] VITALS: TEMP 98.2
--- NOTE | 2022-01-04 03:12 | XR ---
EXAMINATION TYPE: XR chest 2V DATE OF EXAM: 01/04/2022 COMPARISON: 07/18/2020 HISTORY: Cough TECHNIQUE: 2 views FINDINGS: Heart and mediastinum are normal. Lungs are clear. Diaphragm is normal. Bony thorax is inta ct. IMPRESSION: Normal chest. No change.
[2022-01-04 03:46] LABS: Amphetamine Screen,Urine Not Detected (NotDetected); Barbiturate Screen,Urine Not Detected (NotDetected); Benzodiazepines Screen,Urine Not Detected (NotDetected); Cocaine Screen,Urine Not Detected (NotDetected); Methadone Screen, Urine Not Detected (NotDetected); Opiate Screen,Urine Not Detected (NotDetected); Oxycodone Screen, Urine Not Detected (NotDetected); Phencyclidine Screen,Urine Not Detected (NotDetected); Tricyclic Antidepressant,Urine Not Detected (NotDetected); Urn Cannabinoid Scrn Not Detected (NotDetected)
--- NOTE | 2022-01-04 03:49 | ED ---
Psych HPI <Christopher Irving - Last Filed: 01/04/22 04:45> - General Source: patient, family Mode of arrival: ambulatory <Yana Garcia - Last Filed: 01/04/22 05:12> - General Chief Complaint: Psychiatric Symptoms Stated Complaint: Mental Health, not sleeping Time Seen by Provider: 01/04/22 02:04 - History of Present Illness Initial Comments: Patient is a 26-year-old male presenting for mental health evaluation. Patient states he has been unable to sleep and has been hearing voices talking about him. Patient denies any suicidal or homicidal ideation. Patient also admits to dry cough, mild fever, and fatigue. Patient states that the last time he had Covid it felt similar and he also struggled with sleeping. He denies any chest pain, shortness of breath, nausea, vomiting, abdominal pain, diarrhea, hematochezia, melena, hematuria, dysuria, urgency, frequency, flank pain, sore throat, ear pain, sinus pain. (Yana Garcia) - Related Data Home Medications Medication Instructions Recorded Confirmed Acetaminophen Oral Susp [Tylenol] 15 mg PO Q4H PRN 07/17/20 07/18/20 Dm/Acetaminophen/Doxylamine [Vicks 30 ml PO Q12H PRN 07/17/20 07/18/20 Nyquil Cold-Flu Liquid] Previous Rx's Medication Instructions Recorded Ascorbic Acid [Vitamin C] 500 mg PO BID #30 tablet 07/19/20 Zinc Sulfate 220 mg PO DAILY #30 capsule 07/19/20 hydrOXYzine HCL [Atarax] 25 mg PO HS PRN #5 tab 01/04/22 Allergies Allergy/AdvReac Type Severity Reaction Status Date / Time No Known Allergies Allergy Verified 01/03/22 23:48 Review of Systems ROS Other: All systems not noted in ROS Statement are negative. <Christopher Irving - Last Filed: 01/04/22 04:45> ROS Other: All systems not noted in ROS Statement are negative. <Yana Garcia - Last Filed: 01/04/22 05:12> ROS Statement: Those systems with pertinent positive or pertinent negative responses have been documented in the HPI. Past Medical History Past Medical History: No Reported History History of Any Multi-Drug Resistant Organisms: None Reported Past Surgical History: No Surgical Hx Reported Past Anesthesia/Blood Transfusion Reactions: No Reported Reaction Past Psychological History: No Psychological Hx Reported Smoking Status: Current some day smoker Past Alcohol Use History: Daily Past Drug Use History: None Reported - Past Family History Mother Additional Family Medical History / Comment(s): anxiety and depression <Garcia,Malana maria - Last Filed: 01/04/22 05:12> General Exam Limitations: no limitations General appearance: alert, in no apparent distress Head exam: Present: atraumatic, normocephalic, normal inspection Eye exam: Present: normal appearance, EOMI. Absent: scleral icterus, periorbital swelling ENT exam: Present: normal exam, normal oropharynx, mucous membranes moist, TM's normal bilaterally Neck exam: Present: normal inspection Respiratory exam: Present: normal lung sounds bilaterally. Absent: respiratory distress, wheezes, rales, rhonchi, stridor Cardiovascular Exam: Present: regular rate, normal rhythm, normal heart sounds. Absent: systolic murmur, diastolic murmur, rubs, gallop, clicks GI/Abdominal exam: Present: soft, normal bowel sounds. Absent: distended, tenderness, guarding, rebound, rigid Neurological exam: Present: alert, oriented X3, CN II-XII intact Psychiatric exam: Present: normal affect, normal mood Skin exam: Present: warm, dry, intact, normal color. Absent: rash <GarciaYana - Last Filed: 01/04/22 05:12> Course Vital Signs 01/03/22 01/04/22 23:47 02:56 Temperature 100.3 F H 98.2 F Pulse Rate 118 H Respiratory 20 Rate Blood Pressure 164/104 O2 Sat by Pulse 96 Oximetry Medical Decision Making - Lab Data Lab Results 01/04/22 01/04/22 Range/Units 02:47 02:54 Urine Opiates Screen Not Detected (NotDetected) Ur Oxycodone Screen Not Detected (NotDetected) Urine Methadone Screen Not Detected (NotDetected) Ur Propoxyphene Screen Not Detected (NotDetected) Ur Barbiturates Screen Not Detected (NotDetected) U Tricyclic Antidepress Not Detected (NotDetected) Ur Phencyclidine Scrn Not Detected (NotDetected) Ur Amphetamines Screen Not Detected (NotDetected) U Methamphetamines Scrn Not Detected (NotDetected) U Benzodiazepines Scrn Not Detected (NotDetected) Urine Cocaine Screen Not Detected (NotDetected) U Marijuana (THC) Screen Not Detected (NotDetected) Coronavirus (PCR) Not Detected (Not Detectd) Disposition <Christopher Irving - Last Filed: 01/04/22 04:45> Is patient prescribed a controlled substance at d/c from ED?: No Time of Disposition: 05:10 <Yana Garcia - Last Filed: 01/04/22 05:12> Clinical Impression: Depression, Adjustment reaction of adult life, Drug-induced psychotic disorder Disposition: HOME SELF-CARE Condition: Fair Instructions (If sedation given, give patient instructions): Depression (ED) Additional Instructions: Follow-up with PCP. Report back to ER if any new or worsening symptoms. Prescriptions: hydrOXYzine HCL [Atarax] 25 mg PO HS PRN #5 tab PRN Reason: Anxiety Referrals: None,Stated [Primary Care Provider] - 1-2 days
[2022-01-04] MEDS ORDERED: LORazepam 1 MG TAB PO STA (04:45)
[2022-01-04] MEDS ORDERED: diazePAM 5 MG TAB PO STA (04:45)
[2022-01-04 05:13] VITALS: BP 149/105; PULSE 84; RESP 18
== END 2022-01-04 05:17 | disposition home or self-care (01) ==
LOC: EC 23:26
DX: F19.959 Other psychoactive substance use, unspecified with psychoactive substance-induced psychotic disorder, unspecified (principal); F43.20 Adjustment disorder, unspecified; F32.A Depression, unspecified; F17.200 Nicotine dependence, unspecified, uncomplicated; Z20.822 Contact with and (suspected) exposure to COVID-19
CPT/HCPCS: 71046; 80306; 82075; 87635; 99284

== ENCOUNTER 2023-05-17 09:57 | Emergency (ER) | payer BC, OTHER ==
[2023-05-17] MEDS ORDERED: DIPH,PERTUS(ACELL)TETVAC-LF 0.5 ML VIAL IM ONE (10:05)
[2023-05-17] MEDS ORDERED: SODIUM CHLORIDE 0.9% 1,000 ML IV STA (10:05)
[2023-05-17] MEDS ORDERED: MORPHINE SULFATE 2 MG/ML SYRINGE IVP STA (10:06)
[2023-05-17] MEDS ORDERED: LORazepam 2 MG/ML INJ IV STA (10:09)
[2023-05-17 10:25] VITALS: BP 156/132; PULSE 101; RESP 18
--- NOTE | 2023-05-17 10:26 | XR ---
EXAMINATION TYPE: XR chest 1V portable DATE OF EXAM: 05/17/2023 10:21 AM CLINICAL INDICATION:Male, 27 years old with history of trauma; [facility] COMPARISON: Chest radiographs from 01/04/2022. TECHNIQUE: XR chest 1V portable Frontal view of the chest. FINDINGS: Lungs/Pleura: There is no evidence of pleural effusion, focal consolidation, or pneumothorax. Pulmonary vascularity: Unremarkable. Heart/mediastinum: Cardiomediastinal silhouette is unremarkable. Musculoskeletal: No acute osseous pathology. Other findings: None IMPRESSION: No acute cardiopulmonary disease/process.
--- NOTE | 2023-05-17 10:27 | XR ---
EXAMINATION TYPE: XR pelvis AP view DATE OF EXAM: 05/17/2023 10:23 AM CLINICAL INDICATION:Male, 27 years old with history of Trauma; [facility] COMPARISON: None TECHNIQUE: The pelvis was examined in a single projection. FINDINGS: There is no evidence of fracture or dislocation. There is no soft tissue abnormality. No a bnormal calcifications are present. The spine appears intact. The hips appear intact. No significant degeneration. IMPRESSION: No acute osseous pathology.
[2023-05-17 10:28] LABS: Basophils % (A) 1 %; Eosinophils % (A) 0 %; HCT 41.7 % (39.0-53.0); HGB 15.2 gm/dL (13.0-17.5); Lymphocytes # (A) 0.7 k/uL (1.0-4.8); Lymphocytes % (A) 18 %; MCHC 36.4 g/dL (31.0-37.0); MCV 96.2 fL (80.0-100.0); Mean Platelet Volume 9.6; Monocytes # (A) 0.2 k/uL (0-1.0); Monocytes % (A) 5 %; Neutrophils # (A) 2.8 k/uL (1.3-7.7); Neutrophils % (A) 75 %; Platelet Count 133 k/uL (150-450); RBC 4.34 m/uL (4.30-5.90); RDW 12.1 % (11.5-15.5); WBC 3.8 k/uL (3.8-10.6)
[2023-05-17 10:34] LABS: Glucose,Whole Blood 145 mg/dL (70-110)
--- NOTE | 2023-05-17 10:48 | ED ---
General Adult HPI - General Chief complaint: Fall Stated complaint: Fall, poss ETOH Source: patient, EMS, RN notes reviewed, old records reviewed Mode of arrival: EMS Limitations: no limitations - History of Present Illness Initial comments: Patient is a 27 year old male who presents emergency Department after a fall at home. Presents as a level II trauma activation. Suspect alcohol abuse for the patient. Apparently patient was outside smoking when he fell backwards and st ruck his head on an unknown object. At a hematoma and blood at the scene. EMS states approximately 500-700 mL of blood at the scene by their estimate. They wrapped the patient's head with a piece of gauze as well as Kerlix and transfer the patient for further evaluation. - Related Data Previous Rx's Medication Instructions Recorded chlordiazePOXIDE HCl [Librium] 25 mg PO QID 5 Days #20 capsule 05/17/23 Allergies Allergy/AdvReac Type Severity Reaction Status Date / Time No Known Allergies Allergy Verified 05/17/23 12:12 Review of Systems ROS Statement: Those systems with pertinent positive or pertinent negative responses have been documented in the HPI. Review of Systems: CONST: Denies fever EYES: Denies blurry vision ENT: Denies nasal congestion C/V: Denies Chest pain RESP: Denies shortness of breath GI: Denies abdominal pain : Denies dysuria SKIN: Endorses scalp laceration MSK: Denies joint pain. NEURO: Denies headache ROS Other: All systems not noted in ROS Statement are negative. Past Medical History Past Medical History: No Reported History History of Any Multi-Drug Resistant Organisms: None Reported Past Surgical History: No Surgical Hx Reported Past Anesthesia/Blood Transfusion Reactions: No Reported Reaction Past Psychological History: No Psychological Hx Reported Smoking Status: Current some day smoker Past Alcohol Use History: Daily Past Drug Use History: None Reported - Past Family History Mother Additional Family Medical History / Comment(s): anxiety and depression General Exam - General Exam Comments Initial Comments: General: Appears acutely intoxicated. HEAD: She has a golf ball sized hematoma to the posterior occiput. Unable to visualize the laceration at this time due to bleeding, hair. EYES: PERRLA, EOMI, conjunctiva normal, no discharge. Pupils are 3-4 mm and equal bilaterally. ENT: Hearing grossly intact, normal oropharynx. RESPIRATORY: Clear breath sounds bilaterally. No wheezes, rales, or rhonchi. C/V: Regular rate and rhythm. S1 and S2 auscultated, no edema, peripheral pulses 2+ and intact throughout ABD: Abd is soft, nontender, nondistended EXT: Normal range of motion, no obvious deformity. No midline cervical, thoracic, lumbar spine tenderness to palpation or step-offs or deformities. Pelvis is stable. SKIN: It is located over the abdomen, back, legs, arms at various stages of healing. Golf ball size hematoma to the posterior occiput scalp. Actively oozing blood. NEURO: Alert and oriented x 4. Cranial nerves II-XII intact. No focal sensory or strength deficits. GCS currently 15. Limitations: no limitations Course Vital Signs 05/17/23 10:01 Pulse Rate 101 H Respiratory 18 Rate Blood Pressure 156/132 O2 Sat by Pulse 100 Oximetry Procedures - Laceration Laceration #1 Consent Obtained: verbal consent Indication: laceration Site: scalp Size (cm): 5 Description: linear Depth: simple, single layer Anesthetic Used: lidocaine 2%, with epi Anesthesia Technique: local infiltration Pre-repair: wound explored, irrigated extensively Type of Sutures: vicryl Size of Sutures: 4-0 Number of Sutures: 4 Technique: simple, interrupted Patient Tolerated Procedure: well Additional Comments: also closed with 11 willard in addition to dissolvable sutures. Medical Decision Making - Medical Decision Making Was pt. sent in by a medical professional or institution (Dr. PA, MANIFEST CLERK, urgent care, hospital, or intermediate...) When possible be specific @ -No Did you speak to anyone other than the patient for history (EMS, parent, family, police, friend...)? What history was obtained from this source @ -I spoke with family who convey the patient's alcohol abuse has gotten worse. Patient was found in the kitchen after falling in the garage. Has frequent falls due to alcohol abuse. Did you review nursing and triage notes (agree or disagree)? Why? @ -I reviewed and agree with nursing and triage notes Were old charts reviewed (outside hosp., previous admission, EMS record, old EKG, old radiological studies, urgent care reports/EKG's, intermediate records)? Report findings @ -No old charts were reviewed Differential Diagnosis (chest pain, altered mental status, abdominal pain women, abdominal pain men, vaginal bleeding, weakness, fever, dyspnea, syncope, headache, dizziness, GI bleed, back pain, seizure, CVA, palpatations, mental health, musculoskeletal)? @ -Differential Musculoskeletal Muscular strain, contusion, ligament sprain, fracture, arthritis, septic arthritis, bursitis, cellulitis, muscle spasm, nerve compression, DVT, arterial occlusion, herpes zoster, electrolyte abnormality, tumor.... This is not meant to be in all inclusive list. Also includes intracranial trauma, intrathoracic trauma, intra-abdominal trauma. EKG interpreted by me (3pts min.). @ -As above X-rays interpreted by me (1pt min.). @ -X-ray pelvis x-ray revealed no obvious acute injuries. CT interpreted by me (1pt min.). @ -CT imaging negative for any obvious traumatic injury other than the findings consistent with his hematoma on the scalp. No intracranial process. No injury of the chest abdomen or pelvis. U/S interpreted by me (1pt. min.). @ -None done What testing was considered but not performed or refused? (CT, X-rays, U/S, labs)? Why? @ -None What meds were considered but not given or refused? Why? @ -None Did you discuss the management of the patient with other professionals (professionals i.e. , PA, MANIFEST CLERK, lab, RT, psych nurse, social media coordinator, head of biology, teacher, operations officer, showcase maker)? Give summary @ -No Was smoking cessation discussed for >3mins.? @ -No Was critical care preformed (if so, how long)? @ -Yes, 35 minutes Were there social determinants of health that impacted care today? How? (Homelessness, low income, unemployed, alcoholism, drug addiction, transportation, low edu. Level, literacy, decrease access to med. care, fci, rehab)? @ -No Was there de-escalation of care discussed even if they declined (Discuss DNR or withdrawal of care, Hospice)? DNR status @ -No What co-morbidities impacted this encounter? (DM, HTN, Smoking, COPD, CAD, Cancer, CVA, ARF, Chemo, Hep., AIDS, mental health diagnosis, sleep apnea, morbid obesity)? @ -None Was patient admitted / discharged? Hospital course, mention meds given and route, prescriptions, significant lab abnormalities, going to OR and other pertinent info. @ -Patient was made a level II trauma activation due to concern for mentation via EMS as well as the fall with uncontrolled bleeding per EMS. Patient arrived in he did have a bleeding hematoma to the posterior occiput. ATLS protocol was followed. He was given a 1 L fluid bolus, Tetanus booster, morphine for analgesia as well as a dose of Ativan to obtain adequate CT imaging. Head wound was bandaged with a pressure dressing after evacuating the hematoma. Patient was in agreement with this plan. Vital signs are within acceptable limits. Patient's laboratory studies consistent with dehydration and chronic alcohol abuse. Alcohol level is 405. Remainder the labs unremarkable. Patient's CT of the head, C-spine, chest and pelvis negative for any obvious medical injury other than the findings concerning for the hematoma. X-rays unremarkable as well. EKG unremarkable. I updated the patient. Mental status remains unchanged. After discussion with patient and parents, patient will be given a prescription for Librium for home. We did discuss rehab and patient is uncertain if he wants to do that at this time. Plans and drinking alcohol. Patient's laceration was cleaned and revealed to be a 5 cm laceration. See additional note for further details. Closed with both dissolvable sutures and 11 willard. Patient be discharged home at this time. He is given referral sources for rehab. Pressure dressing reapplied. I will provide the patient with a prescription for Librium. I instructed the patient to follow up with their PCP in the next 1-3 days . I explained that the patient should return to the emergency department if they experience any worsening symptoms. Strict return precautions were discussed with the patient. The patient expressed understanding of these instructions. I answered all questions that the patient had. The patient was discharged home in fair condition with their prescriptions and follow up information. Undiagnosed new problem with uncertain prognosis? @ -No Drug Therapy requiring intensive monitoring for toxicity (Heparin, Nitro, Insuli n, Cardizem)? @ -No Were any procedures done? @ -lac repair, sutures and willard Diagnosis/symptom? @ -Alcohol intoxication, fall, laceration, scalp hematoma Acute, or Chronic, or Acute on Chronic? @ -Acute Uncomplicated (without systemic symptoms) or Complicated (systemic symptoms)? @ -Complicated Side effects of treatment? @ -No Exacerbation, Progression, or Severe Exacerbation? @ -No Poses a threat to life or bodily function? How? (Chest pain, [place], ME, pneumonia, PE, COPD, DKA, ARF, appy, cholecystitis, CVA, Diverticulitis, Homicidal, Suicidal, threat to staff... and all critical care pts) @ -UnLikely - Lab Data Result diagrams: 05/17/23 10:10 05/17/23 10:05 Lab Results 05/17/23 05/17/23 05/17/23 Range/Units 10:05 10:05 10:10 WBC 3.8 (3.8-10.6) k/uL RBC 4.34 (4.30-5.90) m/uL Hgb 15.2 (13.0-17.5) gm/dL Hct 41.7 (39.0-53.0) % MCV 96.2 (80.0-100.0) fL MCH 35.0 (25.0-35.0) pg MCHC 36.4 (31.0-37.0) g/dL RDW 12.1 (11.5-15.5) % Plt Count 133 L (150-450) k/uL MPV 9.6 Neutrophils % 75 % Lymphocytes % 18 % Monocytes % 5 % Eosinophils % 0 % Basophils % 1 % Neutrophils # 2.8 (1.3-7.7) k/uL Lymphocytes # 0.7 L (1.0-4.8) k/uL Monocytes # 0.2 (0-1.0) k/uL Eosinophils # 0.0 (0-0.7) k/uL Basophils # 0.0 (0-0.2) k/uL PT (10.0-12.5) sec INR (<1.2) APTT (22.0-30.0) sec Sodium 123 L (137-145) mmol/L Potassium 4.4 (3.5-5.1) mmol/L Chloride 87 L (98-107) mmol/L Carbon Dioxide 20 L (22-30) mmol/L Anion Gap 16 mmol/L BUN 7 L (9-20) mg/dL Creatinine 0.71 (0.66-1.25) mg/dL Est GFR (CKD-EPI)AfAm >90 (>60 ml/min/1.73 sqM) Est GFR (CKD-EPI)NonAf >90 (>60 ml/min/1.73 sqM) Glucose 138 H (74-99) mg/dL POC Glucose (mg/dL) (70-110) mg/dL POC Glu Benzene Worker ID Calcium 8.3 L (8.4-10.2) mg/dL Total Bilirubin 2.4 H (0.2-1.3) mg/dL AST 487 H (17-59) U/L ALT 267 H (4-49) U/L Alkaline Phosphatase 125 (38-126) U/L Total Protein 7.5 (6.3-8.2) g/dL Albumin 4.3 (3.5-5.0) g/dL Urine Color Yellow Urine Appearance Clear (Clear) Urine pH 6.5 (5.0-8.0) Ur Specific [place] 1.021 (1.001-1.035) Urine Protein 3+ H (Negative) Urine Glucose (UA) Negative (Negative) Urine Ketones 1+ H (Negative) Urine Blood Moderate H (Negative) Urine Nitrite Negative (Negative) Urine Bilirubin Negative (Negative) Urine Urobilinogen 3.0 (<2.0) mg/dL Ur Leukocyte Esterase Negative (Negative) Urine RBC 3 (0-5) /hpf Urine WBC 1 (0-5) /hpf Ur Squamous Epith Cells <1 (0-4) /hpf Amorphous Sediment Rare H (None) /hpf Urine Mucus Rare H (None) /hpf Urine Opiates Screen Detected H (NotDetected) Ur Oxycodone Screen Not Detected (NotDetected) Urine Methadone Screen Not Detected (NotDetected) Ur Barbiturates Screen Not Detected (NotDetected) U Tricyclic Antidepress Not Detected (NotDetected) Ur Phencyclidine Scrn Not Detected (NotDetected) Ur Amphetamines Screen Not Detected (NotDetected) U Methamphetamines Scrn Not Detected (NotDetected) U Benzodiazepines Scrn Not Detected (NotDetected) Urine Cocaine Screen Not Detected (NotDetected) U Marijuana (THC) Screen Not Detected (NotDetected) Serum Alcohol 405 H* mg/dL Influenza Type A (PCR) (Not Detectd) Influenza Type B (PCR) (Not Detectd) RSV (PCR) (Not Detectd) SARS-CoV-2 (PCR) (Not Detectd) Blood Type Blood Type Confirm Blood Type Recheck Bld Type Recheck Status Antibody Screen Spec Expiration Date 05/17/23 05/17/23 05/17/23 Range/Units 10:10 10:10 10:10 WBC (3.8-10.6) k/uL RBC (4.30-5.90) m/uL Hgb (13.0-17.5) gm/dL Hct (39.0-53.0) % MCV (80.0-100.0) fL MCH (25.0-35.0) pg MCHC (31.0-37.0) g/dL RDW (11.5-15.5) % Plt Count (150-450) k/uL MPV Neutrophils % % Lymphocytes % % Monocytes % % Eosinophils % % Basophils % % Neutrophils # (1.3-7.7) k/uL Lymphocytes # (1.0-4.8) k/uL Monocytes # (0-1.0) k/uL Eosinophils # (0-0.7) k/uL Basophils # (0-0.2) k/uL PT 10.6 (10.0-12.5) sec INR 1.0 (<1.2) APTT 23.4 (22.0-30.0) sec Sodium (137-145) mmol/L Potassium (3.5-5.1) mmol/L Chloride (98-107) mmol/L Carbon Dioxide (22-30) mmol/L Anion Gap mmol/L BUN (9-20) mg/dL Creatinine (0.66-1.25) mg/dL Est GFR (CKD-EPI)AfAm (>60 ml/min/1.73 sqM) Est GFR (CKD-EPI)NonAf (>60 ml/min/1.73 sqM) Glucose (74-99) mg/dL POC Glucose (mg/dL) (70-110) mg/dL POC Glu Benzene Worker ID Calcium (8.4-10.2) mg/dL Total Bilirubin (0.2-1.3) mg/dL AST (17-59) U/L ALT (4-49) U/L Alkaline Phosphatase (38-126) U/L Total Protein (6.3-8.2) g/dL Albumin (3.5-5.0) g/dL Urine Color Urine Appearance (Clear) Urine pH (5.0-8.0) Ur Specific [place] (1.001-1.035) Urine Protein (Negative) Urine Glucose (UA) (Negative) Urine Ketones (Negative) Urine Blood (Negative) Urine Nitrite (Negative) Urine Bilirubin (Negative) Urine Urobilinogen (<2.0) mg/dL Ur Leukocyte Esterase (Negative) Urine RBC (0-5) /hpf Urine WBC (0-5) /hpf Ur Squamous Epith Cells (0-4) /hpf Amorphous Sediment (None) /hpf Urine Mucus (None) /hpf Urine Opiates Screen (NotDetected) Ur Oxycodone Screen (NotDetected) Urine Methadone Screen (NotDetected) Ur Barbiturates Screen (NotDetected) U Tricyclic Antidepress (NotDetected) Ur Phencyclidine Scrn (NotDetected) Ur Amphetamines Screen (NotDetected) U Methamphetamines Scrn (NotDetected) U Benzodiazepines Scrn (NotDetected) Urine Cocaine Screen (NotDetected) U Marijuana (THC) Screen (NotDetected) Serum Alcohol mg/dL Influenza Type A (PCR) Not Detected (Not Detectd) Influenza Type B (PCR) Not Detected (Not Detectd) RSV (PCR) Not Detected (Not Detectd) SARS-CoV-2 (PCR) Not Detected (Not Detectd) Blood Type AB Positive Blood Type Confirm Blood Type Recheck No Previous Record Bld Type Recheck Status CABO Indicated Antibody Screen NEGATIVE Spec Expiration Date 05/20/2023 - 230905/17/23 05/17/23 Range/Units 10:15 10:23 WBC (3.8-10.6) k/uL RBC (4.30-5.90) m/uL Hgb (13.0-17.5) gm/dL Hct (39.0-53.0) % MCV (80.0-100.0) fL MCH (25.0-35.0) pg MCHC (31.0-37.0) g/dL RDW (11.5-15.5) % Plt Count (150-450) k/uL MPV Neutrophils % % Lymphocytes % % Monocytes % % Eosinophils % % Basophils % % Neutrophils # (1.3-7.7) k/uL Lymphocytes # (1.0-4.8) k/uL Monocytes # (0-1.0) k/uL Eosinophils # (0-0.7) k/uL Basophils # (0-0.2) k/uL PT (10.0-12.5) sec INR (<1.2) APTT (22.0-30.0) sec Sodium (137-145) mmol/L Potassium (3.5-5.1) mmol/L Chloride (98-107) mmol/L Carbon Dioxide (22-30) mmol/L Anion Gap mmol/L BUN (9-20) mg/dL Creatinine (0.66-1.25) mg/dL Est GFR (CKD-EPI)AfAm (>60 ml/min/1.73 sqM) Est GFR (CKD-EPI)NonAf (>60 ml/min/1.73 sqM) Glucose (74-99) mg/dL POC Glucose (mg/dL) 145 H (70-110) mg/dL POC Glu Benzene Worker ID Sade Duque Calcium (8.4-10.2) mg/dL Total Bilirubin (0.2-1.3) mg/dL AST (17-59) U/L ALT (4-49) U/L Alkaline Phosphatase (38-126) U/L Total Protein (6.3-8.2) g/dL Albumin (3.5-5.0) g/dL Urine Color Urine Appearance (Clear) Urine pH (5.0-8.0) Ur Specific [place] (1.001-1.035) Urine Protein (Negative) Urine Glucose (UA) (Negative) Urine Ketones (Negative) Urine Blood (Negative) Urine Nitrite (Negative) Urine Bilirubin (Negative) Urine Urobilinogen (<2.0) mg/dL Ur Leukocyte Esterase (Negative) Urine RBC (0-5) /hpf Urine WBC (0-5) /hpf Ur Squamous Epith Cells (0-4) /hpf Amorphous Sediment (None) /hpf Urine Mucus (None) /hpf Urine Opiates Screen (NotDetected) Ur Oxycodone Screen (NotDetected) Urine Methadone Screen (NotDetected) Ur Barbiturates Screen (NotDetected) U Tricyclic Antidepress (NotDetected) Ur Phencyclidine Scrn (NotDetected) Ur Amphetamines Screen (NotDetected) U Methamphetamines Scrn (NotDetected) U Benzodiazepines Scrn (NotDetected) Urine Cocaine Screen (NotDetected) U Marijuana (THC) Screen (NotDetected) Serum Alcohol mg/dL Influenza Type A (PCR) (Not Detectd) Influenza Type B (PCR) (Not Detectd) RSV (PCR) (Not Detectd) SARS-CoV-2 (PCR) (Not Detectd) Blood Type Blood Type Confirm AB Positive Blood Type Recheck Bld Type Recheck Status Antibody Screen Spec Expiration Date - EKG Data -: EKG Interpreted by Me EKG Comments: 12-lead Electrocardiogram Interpretation Note EKG was reviewed and interpreted by myself. 12-lead ECG performed at 1040 is interpreted by me as revealing normal sinus rhythm at a rate of 91 beats per minute. [place] is normal. DE interval is 153 ms, cheondoism is 101 ms, QTc is 418 ms.. There were no ST or T wave abnormalities to suggest myocardial ischemia or injury. R wave progression across the precordium was satisfactory. By my interpretation this EKG is non-diagnostic for acute ischemia. Critical Care Time Critical Care Time: Yes Total Critical Care Time: 35 Disposition Clinical Impression: Fall, Scalp hematoma, Alcohol intoxication, Laceration Disposition: HOME SELF-CARE Instructions (If sedation given, give patient instructions): Diphtheria/Pertussis/Tetanus Vaccine (By injection), Staple Care (ED), Fall Prevention (ED), Hematoma (ED) Prescriptions: chlordiazePOXIDE HCl [Librium] 25 mg PO QID 5 Days #20 capsule Is patient prescribed a controlled substance at d/c from ED?: No Referrals: None,Stated [Primary Care Provider] - 1-2 days Forms: AA Meetings [place], [facility], Area PCPs Time of Disposition: 12:45
[2023-05-17 10:51] LABS: Partial Thromboplastin Time 23.4 sec (22.0-30.0); Prothrombin Time 10.6 sec (10.0-12.5)
[2023-05-17 10:53] LABS: Amorphous Sediment,Urine Rare /hpf; Appearance,Urine Clear (Clear); Bilirubin,Urine Negative (Negative); Blood,Urine Moderate (Negative); Color,Urine Yellow; Glucose,Urine (UA) Negative (Negative); Ketones,Urine 1+ (Negative); Leukocyte Esterase,Urine Negative (Negative); Mucus,Urine Rare /hpf; Nitrite,Urine Negative (Negative); PH, Urine 6.5 (5.0-8.0); Protein,Urine 3+ (Negative); RBC,Urine 3 /hpf (0-5); Specific Gravity,Urine 1.021 (1.001-1.035); Squamous Epithelial Cell,Urine <1 /hpf (0-4); WBC,Urine 1 /hpf (0-5)
[2023-05-17 10:58] LABS: Cocaine Screen,Urine Not Detected (NotDetected); Opiate Screen,Urine Detected (NotDetected); Phencyclidine Screen,Urine Not Detected (NotDetected); Urn Cannabinoid Scrn Not Detected (NotDetected)
[2023-05-17 10:59] LABS: Amphetamine Screen,Urine Not Detected (NotDetected); Barbiturate Screen,Urine Not Detected (NotDetected); Benzodiazepines Screen,Urine Not Detected (NotDetected); Methadone Screen, Urine Not Detected (NotDetected); Oxycodone Screen, Urine Not Detected (NotDetected); Tricyclic Antidepressant,Urine Not Detected (NotDetected)
--- NOTE | 2023-05-17 11:06 | CT ---
EXAMINATION TYPE: CT brain cspine wo con CT DLP: 1354.1 mGycm, Automated exposure control for dose reduction was used. DATE OF EXAM: 05/17/2023 10:47 AM COMPARISON: None. CLINICAL INDICATION:Male, 27 years old with history of trauma; TRAUMA. Fall. Possible ETOH TECHNIQUE: Brain: Multiple axial CT images of the brain were obtained without IV contrast. Cspine: Axial CT images from the skull base to the inferior aspect of T2 we obtained without intraven ous contrast. Coronal and sagittal reformatted images were also reviewed. FINDINGS: Brain: Extra-axial spaces: No abnormal extra-axial fluid collections. Ventricular system: Within normal limits Cerebral parenchyma: No acute intraparenchymal hemorrhage or mass effect. The diaz-white junction is well differentiated. Cerebellum: Unremarkable. Mass effect: No evidence of midline shift. Intracranial vasculature: unremarkable Soft tissues: Normal. Calvarium/osseous structures: No depressed skull fracture. Paranasal sinuses and mastoid air cells: Clear. Visualized orbits: Orbital contents are intact. Cervical spine: Fracture: None. Osseous structures: Unremarkable Vertebral alignment: Within normal limits. Spinal canal/Neural Foramina: No evidence of significant spinal canal narrowing. No evidence for sign ificant neural foraminal stenosis. Neck soft tissues: Prevertebral soft tissues are within normal limits. Other: The airway is patent. The lung apices are clear. IMPRESSION: 1. No acute intracranial process. 2. No evidence of cervical spine fracture. 3. Left posterior scalp edema/contusion.
[2023-05-17 11:07] LABS: African American GFR (CKD) >90 (>60 ml/min/1.73 sqM); Carbon Dioxide 20 mmol/L (22-30); Non-African American GFR(CKD) >90 (>60 ml/min/1.73 sqM); Total Protein 7.5 g/dL (6.3-8.2)
--- NOTE | 2023-05-17 11:08 | CT ---
EXAMINATION TYPE: CT ChestAbdPelvis w con CT DLP: 1580.8 mGycm, Automated exposure control for dose reduction was used. DATE OF EXAM: 05/17/2023 10:47 AM COMPARISON: 07/18/2020 CLINICAL INDICATION:Male, 27 years old with history of trauma; [facility], Trauma. Fall from standing Technique: CT ChestAbdPelvis w con; Multiple axial images were obtained. Two-dimensional coronal and sagittal reconstructions were obtained. Contrast used:100 ml mL of Isovue 300 with IV Contrast, Oral contrast used: without Oral Contrast Findings: CHEST: LUNGS/ PLEURA: No focal consolidation, pneumothorax or pleural effusion. AIRWAY: Patent and unremarkable. HEART: Size within normal limits. MEDIASTINUM: No gross evidence of adenopathy. VASCULATURE: No aortic aneurysm. MUSCULOSKELETAL: No acute osseous abnormalities. SOFT TISSUES/LYMPH NODES: Unremarkable. LOWER NECK: No significant findings. ABDOMEN: ABDOMEN LIVER: Diffusely hypoattenuating parenchyma. GALLBLADDER AND BILE DUCTS: Unremarkable. PANCREAS: Unremarkable. SPLEEN: Unremarkable. ADRENAL GLANDS: Unremarkable. KIDNEYS AND URETERS: No evidence of hydronephrosis or renal calculus. The ureters are unremarkable. PELVIS BLADDER: Unremarkable REPRODUCTIVE: Unremarkable. ABDOMEN & PELVIS STOMACH AND BOWEL: No evidence of bowel obstruction. PERITONEUM: No evidence of pneumoperitoneum or free fluid. VASCULATURE: No evidence of aortic aneurysm. MUSCULOSKELETAL: No acute osseous abnormalities LYMPH NODES: No gross evidence for lymphadenopathy. SOFT TISSUE/ABDOMINAL WALL: Unremarkable IMPRESSION: 1. No evidence for acute traumatic process. 2. Market Hepatic steatosis.
[2023-05-17 11:10] LABS: AST 487 U/L (17-59); Albumin 4.3 g/dL (3.5-5.0); Blood Urea Nitrogen 7 mg/dL (9-20); Glucose 138 mg/dL (74-99); Total Bilirubin 2.4 mg/dL (0.2-1.3)
[2023-05-17 11:30] LABS: ALT 267 U/L (4-49); Alkaline Phosphatase 125 U/L (38-126); Anion Gap 16 mmol/L; Calcium 8.3 mg/dL (8.4-10.2); Chloride 87 mmol/L (98-107); Potassium 4.4 mmol/L (3.5-5.1); Sodium 123 mmol/L (137-145)
[2023-05-17 11:45] LABS: Alcohol 405 mg/dL
[2023-05-17] MEDS ORDERED: LIDOCAINE 2%-EPI 1:100,000 20 ML VIAL SQ STA (12:00)
== END 2023-05-17 13:15 | disposition home or self-care (01) ==
LOC: EC 09:57
DX: S01.01XA Laceration without foreign body of scalp, initial encounter (principal); F10.129 Alcohol abuse with intoxication, unspecified; F17.200 Nicotine dependence, unspecified, uncomplicated; Z20.822 Contact with and (suspected) exposure to COVID-19; Z23 Encounter for immunization; Y90.8 Blood alcohol level of 240 mg/100 ml or more; W18.30XA Fall on same level, unspecified, initial encounter; Y92.009 Unspecified place in unspecified non-institutional (private) residence as the place of occurrence of the external cause
CPT/HCPCS: 12002; 99285; 96374; 96375; 90471; 96361; 36415; 93005; 86900; 86901; 80053; 85025; 85610; 85730; 86850; 81001; 80306; 80320; 87636; 72170; 71045; 72125; 70450; 71260; 74177; 90715; J2060; J2270; Q9967